=== PATIENT | male | born 1960 | race Hispanic/Latino ===

== ENCOUNTER 2017-11-12 16:38 | Inpatient (IN) | payer MEDICARE ==
[~2017-11-12] VITALS: Ht 177.8 cm; Wt 88.6 kg
--- NOTE | 2017-11-12 17:07 | NUR ---
PATIENT TO ROOM VIA WHEELCHAIR AND PHYSICIAN AT BEDSIDE FOR EVALUATION
[2017-11-12 17:51] LABS: HEMATOCRIT 44.9 % (39.0-50.0); HEMOGLOBIN 14.5 g/dl (14.0-18.0); IMMATURE GRANULOCYTES 0.5 % (0.0-1.0); MEAN CORPUSCULAR HGB 28.4 pG CALC (26.0-32.0); MEAN CORPUSCULAR HGB CONC 32.3 g/L CALC (32.0-36.0); NEUT# 5.28 thou/uL (1.82-7.42); RED BLOOD COUNT 5.1 mill/uL (4.70-6.10); RED CELL DISTRI WIDTH 13.4 % (11.5-15.5)
[2017-11-12 18:07] LABS: ALBUMIN 4.5 g/dL (3.2-5.0); ALKALINE PHOSPHATASE 55 u/l (38-126); ANION GAP 19 (6-22 (CALC)); BILIRUBIN, TOTAL 0.3 mg/dL (0.0-1.4); BUN 13 mg/dL (9-20); BUN/CREATININE RATIO 12 (12-20 (CALC)); CALCIUM 9.7 mg/dL (8.4-10.2); CARBON DIOXIDE 25 mmol/l (22-30); CHLORIDE 104 mmol/l (95-108); GFR > 60 ML/MIN (>=60 (CALC)); GFR FOR AFR.AMER. > 60 ML/MIN (>=60 (CALC)); GLUCOSE 135 mg/dL (75-110); LIPASE 998 u/l (23-300); POTASSIUM 4.1 mmol/l (3.5-5.1); SGOT/AST 20 u/l (17-59); SGPT/ALT 32 u/l (21-72); SODIUM 143 mmol/l (137-146); TOTAL PROTEIN 7.5 g/dL (6.3-8.2)
--- NOTE | 2017-11-12 18:10 | NUR ---
PATIENT RESTING ON STRETCHER, URINAL GIVEN AND INFORMED OF URINE SAMPLE GIVEN. CALL LIGHT WITHIN REACH, WILL CONTINUE TO MONITOR.
--- NOTE | 2017-11-12 19:00 | NUR ---
BEDSIDE REPORT GIVEN TO SKIP BECK. CARE RELINQUISHED.
--- NOTE | 2017-11-12 19:01 | NUR ---
IN ROOM INTRODUCED SELF TO PT. NO C/O AT THIS TIME. RESTING ON STRETCHER.
--- NOTE | 2017-11-12 19:39 | NUR ---
PT. STATES HE DOES NOT KNOW HIS MEDS AND DOSAGES.
[2017-11-12 19:40] LABS: BARBITURATES NEGATIVE (NEGATIVE); COCAINE NEGATIVE (NEGATIVE); METHADONE NEGATIVE (NEGATIVE); OXCYCODONE NEGATIVE (NEGATIVE); TETRAHYDROCANNABIONOL NEGATIVE (NEGATIVE); TRICYLIC ANTIDEPRESSANTS NEGATIVE (NEGATIVE)
[2017-11-12 20:01] LABS: MYOGLOBIN 41 ng/mL (0 - 121)
--- NOTE | 2017-11-12 20:48 | NUR ---
po clonidine given as per md order.
--- NOTE | 2017-11-12 21:41 | NUR ---
RESTING ON STRETCHER, ASSESSMENT UNCHANGED, NO C/O.
[2017-11-12 23:01] LABS: URINE BILIRUBIN - DIPSTICK NEGATIVE (NEGATIVE); URINE BLOOD DIPSTICK NEGATIVE (NEGATIVE); URINE CLARITY CLEAR; URINE COLOR YELLOW; URINE GLUCOSE - DIPSTICK NEGATIVE (NEGATIVE); URINE KETONE NEGATIVE (NEGATIVE); URINE LEUK ESTERASE NEGATIVE (NEGATIVE); URINE NITRITE - DIPSTICK NEGATIVE (Negative); URINE PH 5.5 (4.5-8.0); URINE PROTEIN - DIPSTICK NEGATIVE (NEG-TRACE); URINE SPECIFIC GRAVITY 1.025; URINE UROBILINOGEN - DIPSTICK 0.2 E.U./dL (0.2)
--- NOTE | 2017-11-12 23:06 | NUR ---
Admission Note Report Given to: OMAR JUAREZ Transported by: Wheelchair X Stretcher Transported with: X Nurse Transporter X Patent IV O2 X Refrigerator Car Icer
[2017-11-12 23:10] VITALS: BP 129/83
--- NOTE | 2017-11-12 23:10 | NUR ---
PT. TO MS VIA STRETCHER, NO C/O AT THIS TIME.
--- NOTE | 2017-11-12 23:10 | NUR ---
PT ARRIVED TO THE FLOOR WITH ER STAFF. PT ASSISTED TO BED; VITAL SIGNS OBTAINED. PT ORIENTED TO ROOM AND CALL LIGHT SYSTEM. RESP EVEN AND UNLABORED. NO DISTRESS NOTED. LUNGS CLEAR BILAT. ABD DISTENDED, SOFT. BOWEL SOUNDS PRESENT. PT STATES HAD A BM TODAY. PT STATES HAD BEEN HAVING EPISODES OF DIARRHEA FOR THE PAST WEEK. PT HAS ABD TENDERNESS. PT STATES " LEFT SIDE PARALYSIS DUE TO STROKE" PT IS ABLE TO LIFT BOTH LEGS OFF BED, NO DRIFT DOWN TO BED. HAND GRASP STRONG; EQUAL. IV RAC PATENT; NO REDNESS OR EDEMA NOTED. PEDAL PULSES PALPATED BILAT. TELE IN PLACE. SAFETY PRECAUTIONS REINFORCED. PT INSTRUCTED TO CALL FOR ASSISTANCE. FREQUENT ROUNDS MADE. CALL LIGHT WITHIN REACH.
--- NOTE | 2017-11-13 00:25 | NUR ---
PT RESTING IN BED WATCHING TV. PT DENIES ANY PAIN OR DISCOMFORT. RESP EVEN AND UNLABORED. TELE IN PLACE. IV PATENT. CALL LIGHT WITHIN REACH.
[2017-11-13 03:41] VITALS: BP 121/80
--- NOTE | 2017-11-13 04:00 | NUR ---
PT RESTING IN BED, NO COMPLAINTS OF PAIN OR DISCOMFORT. RESP EVEN AND UNLABORED. NO DISTRESS NOTED. TELE IN PLACE. IV PATENT. ASSESSMENT UNCHANGED.
[2017-11-13 06:39] LABS: HEMOGLOBIN 14.1 g/dl (14.0-18.0); IMMATURE GRANULOCYTES 0.4 % (0.0-1.0); MEAN CELL VOLUME 86.5 fL CALC (80.0-100.0); MEAN CORPUSCULAR HGB 28.4 pG CALC (26.0-32.0); MEAN CORPUSCULAR HGB CONC 32.8 g/L CALC (32.0-36.0); NEUT# 5.24 thou/uL (1.82-7.42); RED BLOOD COUNT 4.97 mill/uL (4.70-6.10); RED CELL DISTRI WIDTH 13.3 % (11.5-15.5)
[2017-11-13 06:58] LABS: ANION GAP 17 (6-22 (CALC)); BUN 12 mg/dL (9-20); BUN/CREATININE RATIO 12 (12-20 (CALC)); CALCIUM 9.2 mg/dL (8.4-10.2); CARBON DIOXIDE 23 mmol/l (22-30); CHLORIDE 106 mmol/l (95-108); GFR > 60 ML/MIN (>=60 (CALC)); GFR FOR AFR.AMER. > 60 ML/MIN (>=60 (CALC)); GLUCOSE 152 mg/dL (75-110); SODIUM 142 mmol/l (137-146)
--- NOTE | 2017-11-13 07:00 | NUR ---
SHIFT CHANGE REPORT FROM OMAR, PT AWAKE ALERT AND ORIENTED, DENIES PAIN AT THIS TIME, IVF INFUSING, TELE MONITOR IN PLACE, CALL RICARDO IN REACH.
[2017-11-13 08:58] VITALS: BP 146/87
[2017-11-13 11:40] VITALS: BP 141/79
--- NOTE | 2017-11-13 12:00 | NUR ---
DENIES PAIN, ATE REGULAR MEAL AND TOLERATED WELL, DR ANGLIN ORDERED IVF X 1L THEN TO D/C PT, WILL CONTINUE TO MONITOR.
[2017-11-13] MEDS ORDERED: GLIPIZIDE5 MG PO (12:27)
[2017-11-13] MEDS ORDERED: COREG6.25 MG PO (12:28)
[2017-11-13] MEDS ORDERED: RANITIDINE150 M1 PO (12:28)
[2017-11-13] MEDS ORDERED: ENALAPRIL10 MG PO (12:28)
[2017-11-13] MEDS ORDERED: METFORMIN500 MG PO (12:28)
[2017-11-13] MEDS ORDERED: LIPITOR20 M1 PO (12:29)
--- NOTE | 2017-11-13 17:12 | NUR ---
Discharge instructions given. Patient verbalizes understanding of same. Discharged in poor condition via Wheelchair to Home with *Other. All belongings sent with pt.
== END 2017-11-13 17:03 | disposition home or self-care (01) | DRG 641 ==
LOC: ED 16:38 → ED-I 20:00 → ED 22:47 → MS2 22:48
PROVIDERS: Emergency Medicine; Family Medicine; ADMIT Internal Medicine; ATTEND Internal Medicine
DX: E86.0 Dehydration (principal); E11.9 Type 2 diabetes mellitus without complications; I10 Essential (primary) hypertension; K52.1 Toxic gastroenteritis and colitis; T38.3X5A Adverse effect of insulin and oral hypoglycemic [antidiabetic] drugs, initial encounter; Z86.73 Personal history of transient ischemic attack (TIA), and cerebral infarction without residual deficits; Z79.84 Long term (current) use of oral hypoglycemic drugs
CPT/HCPCS: Q9967

== ENCOUNTER 2020-11-06 01:43 | Emergency (ER) | payer MEDICARE ==
[~2020-11-06] VITALS: Ht 177.8 cm; Wt 88.0 kg
[~2020-11-06 01:43] MED LIST: COREG6.25 MG PO; ENALAPRIL10 MG PO; GLIPIZIDE5 MG PO; LIPITOR20 M1 PO; METFORMIN500 MG PO; RANITIDINE150 M1 PO
[2020-11-06] MEDS ORDERED: LISINOPRIL2.5 MG PO (02:39)
[2020-11-06] MEDS ORDERED: METOPROL TAR25 MG PO (02:39)
[2020-11-06] MEDS ORDERED: JANUVIA50 MG PO (02:40)
[2020-11-06] MEDS ORDERED: ASPIRIN81 MG PO (02:42)
[2020-11-06 02:45] VITALS: BP 163/98
== END 2020-11-06 02:45 | disposition home or self-care (01) ==
LOC: ED 01:43
DX: E11.649 Type 2 diabetes mellitus with hypoglycemia without coma (principal); I10 Essential (primary) hypertension; T50.916A Underdosing of multiple unspecified drugs, medicaments and biological substances, initial encounter; Z91.128 Patient's intentional underdosing of medication regimen for other reason; Z86.73 Personal history of transient ischemic attack (TIA), and cerebral infarction without residual deficits; Z79.84 Long term (current) use of oral hypoglycemic drugs